=== PATIENT | male | born 2000 | race Two or more races ===

== ENCOUNTER 2022-12-18 14:48 | Emergency (ER) | payer SELFPAY ==
[~2022-12-18] VITALS: Ht 172.7 cm; Wt 63.6 kg
[2022-12-18 14:50] VITALS: TEMP 98.5
[2022-12-18] MEDS ORDERED: LIDOCAINE 1% 10 ML VIAL SQ ONE (16:15)
[2022-12-18] MEDS ORDERED: BACITRACIN 0.9 GM PACKET OINTMENT TP ONE (16:15)
[2022-12-18] MEDS ORDERED: PERTUSS(ACELL),DIPH,TET VAC/PF 0.5 ML SYRINGE IM. ONE (16:15)
[2022-12-18 18:30] VITALS: BP 122/82; PULSE 87; RESP 16
== END 2022-12-18 19:07 | disposition home or self-care (01) ==
LOC: EMS 14:50
DX: S01.81XA Laceration without foreign body of other part of head, initial encounter (principal); X58.XXXA Exposure to other specified factors, initial encounter; Y93.89 Activity, other specified; Y92.89 Other specified places as the place of occurrence of the external cause; Y99.8 Other external cause status
CPT/HCPCS: 99283; 90715; 90471; 12013; J3490